=== PATIENT | male | born 1985 | race Two or more races ===

== ENCOUNTER 2024-10-17 14:43 | Emergency (ER) | payer SELFPAY | END 2024-10-17 17:07 | disposition home or self-care (01) | LOC: MW.ED 14:43 | DX: J39.9 Disease of upper respiratory tract, unspecified (principal); B97.89 Other viral agents as the cause of diseases classified elsewhere; Z79.899 Other long term (current) drug therapy; Z75.8 Other problems related to medical facilities and other health care | CPT/HCPCS: 87428-QW; 99283; 99284 ==

== ENCOUNTER 2025-04-16 19:32 | Emergency (ER) | payer SELFPAY ==
[2025-04-16 20:07] LABS: BASOPHILS ABSOLUTE AUTO 0.06 K/uL (0.00-0.20); BASOPHILS PERCENT AUTO 0.7 % (0.0-1.0); EOSINOPHILS ABSOLUTE AUTO 0.09 K/uL (0.00-0.45); EOSINOPHILS PERCENT AUTO 1.0 % (0.0-6.0); IMMATURE GRAN ABSOLUTE AUTO 0.05 K/uL (0.00-0.05); IMMATURE GRAN PERCENT AUTO 0.5 % (0.0-0.4); LYMPHOCYTES ABSOLUTE AUTO 3.44 K/uL (1.00-4.80); LYMPHOCYTES PERCENT AUTO 37.8 % (24.0-44.0); MEAN PLATELET VOLUME 11.3 fL (9.4-12.4); MONOCYTES ABSOLUTE AUTO 0.64 K/uL (0.00-0.80); MONOCYTES PERCENT AUTO 7.0 % (0.0-8.0); NEUTROPHILS ABSOLUTE AUTO 4.82 K/uL (1.80-7.70); NEUTROPHILS PERCENT AUTO 53.0 % (41.0-71.0); NRBC ABSOLUTE 0.00 K/uL (0.00-0.02); NRBC PERCENT 0.0 /100WBC (0.0-0.2); PLATELET COUNT,PLT 203 K/uL (150-400); RED BLOOD CELL COUNT 4.79 M/uL (4.52-5.90); WHITE BLOOD CELL COUNT,WBC 9.10 K/uL (3.9-11.3)
[2025-04-16 20:12] LABS: BASE EXCESS VENOUS -1.7 (-2.0-3.0); BICARBONATE,VENOUS 22.0 mEq/L (22-29); PCO2 VENOUS 34.0 mmHG (41-51); PH,VENOUS 7.42 (7.32-7.43); PO2 VENOUS 53.0 mmHG (35-45)
[2025-04-16 20:16] LABS: APPEARANCE,URINE CLEAR; GLUCOSE,URINE >=1000 mg/dL (NEGATIVE); OCCULT BLOOD,URINE SMALL (NEGATIVE)
[2025-04-16 20:22] LABS: EPITHELIAL CELLS,URINE RARE (NONE-FEW)
[2025-04-16 20:39] LABS: A/G RATIO 1.1 (0.9-1.6); ALANINE AMINOTRANSFERASE,ALT 73 IU/L (14-63); ASPARTATE AMNIOTRANSFERASE,AST 41 IU/L (15-37); BILIRUBIN TOTAL 0.4 mg/dL (0.2-1.0); BLOOD UREA NITROGEN,BUN 13 mg/dL (7.0-18.0); CARBON DIOXIDE,CO2 21.5 mmol/L (21.0-32.0); CHLORIDE,CL 99 mmol/L (98-107); CREATININE 1.2 mg/dL (0.8-1.3); GLUCOSE RANDOM 386 mg/dL (74-106); POTASSIUM,K 4.0 mmol/L (3.5-5.1); PROTEIN TOTAL,TP 7.1 g/dL (6.4-8.2); SODIUM,NA 136 mmol/L (136-148)
[2025-04-16 20:40] LABS: ESTIMATED GFR 79 mL/min (>60)
[2025-04-16] MEDS ORDERED: 50% Dextrose in Water 50 ML Syringe IVPUSH PRN ×2 (20:40→20:41)
[2025-04-16] MEDS: Insulin Regular, Human 100 Units/ML 10 ML Vial IVPUSH ONE (20:53)
[2025-04-16] MEDS: Insulin Glargine,Human Rec. Analog 100 Units/ML 3 ML Pen SUBCUT ONE (21:06)
== END 2025-04-16 22:38 | disposition home or self-care (01) ==
LOC: MW.ED 19:32
DX: E11.65 Type 2 diabetes mellitus with hyperglycemia (principal); E86.0 Dehydration; R74.8 Abnormal levels of other serum enzymes; Z79.4 Long term (current) use of insulin; Z79.84 Long term (current) use of oral hypoglycemic drugs
CPT/HCPCS: 36415; 80053; 81001; 82009; 82803; 82947; 83036; 83735; 85025; 96360; 99284; J1815; J7030; 99283